=== PATIENT | male | born 1940 | race Caucasian/White ===

== ENCOUNTER → 2020-06-05 | Outpatient (CLI) | payer MEDICARE, OTHER ==
[~2020-06-05] MED LIST: ASPI81TA59 PO; ATOR40TA PO; CARV25TA PO; EZET10TA20 PO; METF-639 PO; SACU1TAB PO; SPIR25TA5 PO; TAMS0.4C97 PO; [UNRECOGNIZED DRUG - CODE] PO
== END ==
LOC: LAB 10:05
PROVIDERS: ATTEND Nurse Anesthetist, Certified Registered
DX: Z01.812 Encounter for preprocedural laboratory examination (principal); Z20.828 Contact with and (suspected) exposure to other viral communicable diseases; K62.5 Hemorrhage of anus and rectum
CPT/HCPCS: U0003

== ENCOUNTER → 2020-06-09 | Day surgery (SDC) | payer MEDICARE, OTHER ==
[~2020-06-09] MED LIST changes: +IPRATRPIUM/ALBUTEROL 0.5/2.5MG 3 ML NEBU. NEB PRN; +IV RINGERS SOLUTION,LACTATED 1,000 ML IV SCH; +LIDOCAINE 2% PF 5 ML VIAL. ONE; +MIDAZOLAM HCL PF 2 MG/2 ML VIAL. IV ONE; +ONDANSETRON PF 4 MG/2 ML VIAL. IV PRN; +PROPOFOL 10,000 MCG/ML (20ML) VIAL IV ONE
[2020-06-09 11:00] VITALS: BP 115/70
== END | disposition home or self-care (01) ==
LOC: SURG 09:06
PROVIDERS: ATTEND Emergency Medicine
DX: K92.1 Melena (principal); K64.8 Other hemorrhoids; K57.30 Diverticulosis of large intestine without perforation or abscess without bleeding; Z79.899 Other long term (current) drug therapy; Z79.84 Long term (current) use of oral hypoglycemic drugs; Z88.8 Allergy status to other drugs, medicaments and biological substances; Z72.89 Other problems related to lifestyle
CPT/HCPCS: 45378; 82947; J2001; J2704; J7120

== ENCOUNTER → 2021-01-08 | Outpatient (CLI) | payer MEDICARE, OTHER ==
[2020-06-09 11:00] VITALS: BP 115/70
[~2021-01-08] MED LIST changes: -IPRATRPIUM/ALBUTEROL 0.5/2.5MG 3 ML NEBU. NEB PRN; -IV RINGERS SOLUTION,LACTATED 1,000 ML IV SCH; -LIDOCAINE 2% PF 5 ML VIAL. ONE; -MIDAZOLAM HCL PF 2 MG/2 ML VIAL. IV ONE; -ONDANSETRON PF 4 MG/2 ML VIAL. IV PRN; -PROPOFOL 10,000 MCG/ML (20ML) VIAL IV ONE
--- NOTE | 2021-01-08 13:44 | RAD ---
EXAM: XR CHEST 2V 01/08/2021 11:10 AM CLINICAL INDICATION: Melanoma on back COMPARISON: None TECHNIQUE: PA and lateral views of the chest FINDINGS: There is a single lead AICD. Median sternotomy wires are present. The heart is normal in s ize. There are calcifications in the thoracic aorta. Lungs are well-expanded. There are calcified gra nulomas in the right apex. A less distinct 4 mm pulmonary nodule in the left apex and 4 mm pulmonary nodule in the right lung base are indeterminate. 5 mm lobulated nodular opacity in the mid right lung is also indeterminate. No consolidation, pleural effusion, or pneumothorax. No acute osseous abnorma lity. IMPRESSION: There multiple pulmonary nodules. Some of these are benign calcified granulomas. A few o thers are less distinct and could be calcified granulomas or noncalcified nodules. Given the history of malignancy, recommend CT chest to further evaluate. Electronically signed by: Treasure Khoury MD (01/08/2021 1:42 PM) [id number]
== END ==
LOC: RAD 11:00
PROVIDERS: ATTEND Nurse Practitioner
DX: Z08 Encounter for follow-up examination after completed treatment for malignant neoplasm (principal); R91.8 Other nonspecific abnormal finding of lung field; I70.0 Atherosclerosis of aorta; L90.5 Scar conditions and fibrosis of skin; D22.5 Melanocytic nevi of trunk; D22.71 Melanocytic nevi of right lower limb, including hip; D22.4 Melanocytic nevi of scalp and neck; L82.1 Other seborrheic keratosis; L81.4 Other melanin hyperpigmentation; Z85.820 Personal history of malignant melanoma of skin; Z85.828 Personal history of other malignant neoplasm of skin
CPT/HCPCS: 71046

== ENCOUNTER → 2021-01-20 | Outpatient (CLI) | payer MEDICARE, OTHER ==
[2020-06-09 11:00] VITALS: BP 115/70
--- NOTE | 2021-01-20 16:16 | RAD ---
PQRS Compliance Statement: One or more of the following individualized dose reduction techniques were utilized for this examinat ion: 1. Automated exposure control 2. Adjustment of the mA and/or kV according to patient size 3. Use of iterative reconstruction technique CT THORAX WO 01/20/2021 12:32 PM Indication: Lung nodule. History of smoking, quit 14 years ago. COMPARISON: Chest radiograph 01/08/2021 TECHNIQUE: Multiple axial CT images of the chest were obtained without intravenous contrast. Coronal and sagittal reformats are provided. FINDINGS: There is biapical pleural parenchymal scarring. Paraseptal emphysematous changes are identified at th e lung apices. Few scattered calcified granulomas are identified in the upper lobes bilaterally. Ther e is a 4 mm solid noncalcified pulmonary nodule in the left upper lobe lung apex (series 2, image 60) . There is a 5 mm solid noncalcified pulmonary nodule in the right upper lobe (series 2, image 80). T here is a 7 mm solid noncalcified pulmonary nodule in the right lower lobe laterally (series 2, image 218). There is a 6 mm solid noncalcified pulmonary nodule in the lateral left lower lobe (series 2, image 213). There is a 6 mm solid noncalcified pulmonary nodule in the lingula (series 2, image 211). No pleural effusions, pulmonary vascular congestion or pneumothorax. Lungs are otherwise clear. Hear t size within normal limits. There is no pericardial effusion. Three-vessel coronary artery vascular calculations are present. Left chest wall cardiac device is identified with leads terminating in the right atrium and right ventricle. Thoracic aorta is normal in course and caliber with moderate calcif ied atheromatous plaque. Cholelithiasis. No suspicious osseous abnormality. IMPRESSION: Solid noncalcified pulmonary nodules are identified within the lungs bilaterally measuring up to 7 mm in the right lower lobe. Fleischner guidelines for incidentally detected pulmonary nodules suggests CT chest at 3-6 months, then consider CT at 18-24 months for multiple solid noncalcified pulmonary no dules 6-8 mm in size. Electronically signed by: Lorene Briones MD (01/20/2021 4:14 PM) [id number]
== END ==
LOC: CT 12:28
PROVIDERS: ATTEND Internal Medicine
DX: C43.9 Malignant melanoma of skin, unspecified (principal); R91.8 Other nonspecific abnormal finding of lung field; J84.10 Pulmonary fibrosis, unspecified; J43.9 Emphysema, unspecified; J98.4 Other disorders of lung; I70.0 Atherosclerosis of aorta
CPT/HCPCS: 71250